=== PATIENT | female | born 1990 | race Caucasian/White ===

== ENCOUNTER → 2020-10-05 | Outpatient (CLI) | payer OTHER ==
--- NOTE | 2020-10-05 15:24 | REP ---
INDICATION: LLQ FLANK/ABD PAIN TENDERNESS NAUSEA ? OVARY CYST/LABS FIRST. COMPARISON: None. TECHNIQUE: Real-time sonographic evaluation of abdomen performed to evaluate for ascites. FINDINGS: There is no free fluid in the upper or lower abdomen bilaterally. IMPRESSION: No sonographic evidence of significant ascites. <Electronically signed by Christo Rose > 10/05/20 [id number]
--- NOTE | 2020-10-05 15:26 | REP ---
INDICATION: LLQ FLANK/ABD PAIN TENDERNESS NAUSEA? OVARY CYST/LABS FIRS. COMPARISON: None. TECHNIQUE: Transabdominal and transvaginal scanning performed. FINDINGS: Uterine dimensions are 6.5 x 3.3 x 3.6 cm. Endometrial echo is 10 mm in AP dimension and centrally placed. The endometrial echo complex is heterogeneous. The bladder measures 6.7 x 3.7 x 7.1cm. The right ovary has dimensions of 2.9 x 2.3 x 2.7 cm. It's Doppler flow is normal with a resistive index of 0.55. The left ovary dimensions are 2.1 x 1.8 x 1.9 cm. It's Doppler flow was normal with resistive index of 0.48. There is no adnexal mass identified. There is trace free fluid in the cul-de-sac which is likely physiologic. IMPRESSION: Negative pelvic ultrasound. If there is clinical concern for ectopic , correlate with serial quantitative beta HCG values. <Electronically signed by Christo Rose > 10/05/20 [id number]
[2020-10-05 15:37] LABS: BASO # 0.1 10^3/uL (0.0-0.2); EOS # 0.2 10^3/uL (0.0-0.5); EOS % 2.1 % (0.0-3.0); HEMATOCRIT 41.8 % (36.0-47.0); HEMOGLOBIN 13.8 g/dl (12.0-15.5); LYMPH # 2.3 10^3/uL (1.5-5.0); LYMPH % 28.4 % (24.0-44.0); MEAN CORPUSCULAR HEMOGLOBIN 29.2 pg (27.0-33.0); MEAN CORPUSCULAR VOLUME 88.6 fl (80.0-96.0); MONO # 0.7 10^3/uL (0.0-0.8); MONO % 8.4 % (2.0-8.0); NEUTROPHILS # 4.9 10^3/uL (1.5-8.5); NEUTROPHILS % 59.7 % (36.0-66.0); PLATELET COUNT, AUTOMATED 286 10^3/uL (150-450); RED BLOOD COUNT 4.72 10^6/uL (4.00-5.40); WHITE BLOOD COUNT 8.1 10^3/uL (4.0-10.0)
[2020-10-05 16:10] LABS: ALBUMIN 3.3 GM/DL (3.2-5.2); ALT/SGPT 28 U/L (12-78); BILIRUBIN,TOTAL 0.4 MG/DL (0.2-1.0); BLOOD UREA NITROGEN 11 MG/DL (7-18); CALCIUM LEVEL 8.5 MG/DL (8.5-10.1); CARBON DIOXIDE LEVEL 26 MEQ/L (21-32); CHLORIDE LEVEL 109 MEQ/L (98-107); CREATININE FOR GFR 0.66 MG/DL (0.55-1.30); GLOMERULAR FILTRATION RATE > 60.0 (>60); GLUCOSE, FASTING 92 MG/DL (70-100); HCG, SERUM QUANTITATIVE < 1.0 MIU/ML; LIPASE 74 U/L (73-393); POTASSIUM SERUM 4.1 MEQ/L (3.5-5.1); SODIUM LEVEL 140 MEQ/L (136-145); TOTAL PROTEIN 6.6 GM/DL (6.4-8.2)
== END ==
LOC: M RAD 13:48
PROVIDERS: ATTEND Physician Assistant
DX: R10.814 Left lower quadrant abdominal tenderness (principal); R11.0 Nausea

== ENCOUNTER 2021-06-15 10:42 | Day surgery (SDC) | payer OTHER ==
[~2021-06-15] VITALS: Ht 167.6 cm; Wt 111.0 kg
[~2021-06-15 10:42] MED LIST: LR 1,000 ML IV ONE; SYNT137T7 PO
[2021-06-15 11:15] LABS: HEMATOCRIT 40.4 % (36.0-47.0); HEMOGLOBIN 13.5 g/dl (12.0-15.5); MEAN CORPUSCULAR HEMOGLOBIN 29.8 pg (27.0-33.0); MEAN CORPUSCULAR HGB CONC 33.4 g/dl (32.0-36.5); MEAN CORPUSCULAR VOLUME 89.2 fl (80.0-96.0); PLATELET COUNT, AUTOMATED 305 10^3/uL (150-450); RED BLOOD COUNT 4.53 10^6/uL (4.00-5.40); WHITE BLOOD COUNT 9.2 10^3/uL (4.0-10.0)
[2021-06-15 11:58] LABS: BLOOD UREA NITROGEN 16 MG/DL (7-18); CALCIUM LEVEL 8.8 MG/DL (8.5-10.1); CARBON DIOXIDE LEVEL 26 MEQ/L (21-32); CHLORIDE LEVEL 108 MEQ/L (98-107); CREATININE FOR GFR 0.84 MG/DL (0.55-1.30); GLOMERULAR FILTRATION RATE > 60.0 (>60); GLUCOSE, FASTING 88 MG/DL (70-100); HCG, SERUM QUANTITATIVE < 1.0 MIU/ML; POTASSIUM SERUM 4.4 MEQ/L (3.5-5.1); SODIUM LEVEL 137 MEQ/L (136-145)
[2021-06-15] MEDS ORDERED: fentaNYL 100 MCG/2 ML INJECTION As Ordered ONE (12:21)
[2021-06-15] MEDS ORDERED: MIDAZOLAM INJ 2MG/2ML VIAL (J2250 PER 1MG) As Ordered ONE (12:21)
[2021-06-15] MEDS ORDERED: propofoL 200 MG/20 ML VIAL As Ordered ONE (12:22)
[2021-06-15] MEDS ORDERED: dexameTHASONE 4 MG/ML 1ML VIAL (J1100 PER 1MG) As Ordered ONE (12:22)
[2021-06-15] MEDS ORDERED: ONDANSETRON 4MG/2ML VIAL As Ordered ONE (12:22)
[2021-06-15] MEDS ORDERED: LIDOCAINE 2% 100MG/5ML SDV (FOR ANES.) As Ordered ONE (12:22)
[2021-06-15] MEDS ORDERED: ACETAMINOPHEN 650 MG SUPP As Ordered ONE (14:51)
[2021-06-15] MEDS ORDERED: ONDANSETRON 4MG/2ML VIAL IV PRN (16:35)
[2021-06-15] MEDS ORDERED: fentaNYL 100 MCG/2 ML INJECTION IV PRN (16:35)
[2021-06-15] MEDS ORDERED: LR 1,000 ML IV SCH (16:35)
[2021-06-15 17:51] VITALS: BP 140/66
== END 2021-06-15 18:00 | disposition home or self-care (01) ==
LOC: M SDC 10:42
PROVIDERS: ATTEND Obstetrics & Gynecology
DX: N93.9 Abnormal uterine and vaginal bleeding, unspecified (principal); N84.0 Polyp of corpus uteri; E03.9 Hypothyroidism, unspecified; E28.2 Polycystic ovarian syndrome; F12.90 Cannabis use, unspecified, uncomplicated; Z79.899 Other long term (current) drug therapy
CPT/HCPCS: 36415; 58563; 80048; 84702; 85027; G0123; J1100; J2250; J2405; J3010

== ENCOUNTER 2023-04-12 07:18 | Inpatient (IN) | payer OTHER ==
[~2023-04-12] VITALS: Ht 167.6 cm; Wt 128.6 kg
[2023-04-12] VITALS (11 sets, daily range): BP systolic 96–156; BP diastolic 57–87
[~2023-04-12 07:18] MED LIST changes: -LR 1,000 ML IV ONE
[2023-04-12] MEDS ORDERED: PRENTAB9 PO (07:52)
[2023-04-12] MEDS ORDERED: NOXI1TAB PO (07:56)
[2023-04-12] MEDS ORDERED: ASPI-226 PO (07:56)
[2023-04-12] MEDS ORDERED: VITA100093 PO (07:56)
[2023-04-12] MEDS ORDERED: HOME MED LIST COMPLETE! XX SCH (08:25)
[2023-04-12] MEDS: LACTATED RINGER'S 1000 ML IV STA (08:33)
[2023-04-12] MEDS ORDERED: METHYLERGONOVINE MALEATE 0.2MG/ML 1ML VIAL IM PRN (08:35)
[2023-04-12] MEDS ORDERED: OXYTOCIN DRIP 30 UNITS in IV 1 EA IV PRN (08:35)
[2023-04-12] MEDS ORDERED: CARBOPROST TROMETHAMINE 250 MCG/ML AMP IM PRN (08:35)
[2023-04-12] MEDS ORDERED: TRANEXAMIC ACID INJection 1,000 MG in NS 100 ML IV PRN (08:35)
[2023-04-12 09:00] LABS: MEAN CORPUSCULAR HEMOGLOBIN 29.8 pg (27.0-33.0); MEAN CORPUSCULAR HGB CONC 33.3 g/dl (32.0-36.5); MEAN CORPUSCULAR VOLUME 89.3 fl (80.0-96.0); PLATELET COUNT, AUTOMATED 178 10^3/uL (150-450); RED BLOOD COUNT 4.03 10^6/uL (4.00-5.40); WHITE BLOOD COUNT 9.5 10^3/uL (4.0-10.0)
[2023-04-12] MEDS: miSOPROStol 50MCG 1/2 TABLET BUC PRN (09:48)
[2023-04-12] MEDS: BUTORPHANOL 2 MG/ML 1ML VIAL IV ONE (22:06)
[2023-04-12] MEDS: PROMETHAZINE 25MG/ML 1ML VIAL IV ONE (22:06)
[2023-04-13] VITALS (61 sets, daily range): BP systolic 88–147; BP diastolic 52–114
[2023-04-13] MEDS: LR 1,000 ML IV SCH (00:35)
[2023-04-13] MEDS: OXYTOCIN DRIP 30 UNITS in IV 1 EA IV SCH ×2 (04:01→23:26)
[2023-04-13] MEDS ORDERED: ONDANSETRON 4MG 2ML VIAL IV PRN ×2 (04:40→23:20)
[2023-04-13] MEDS ORDERED: diphenhydrAMINE 50MG/ML VIAL IV PRN (04:40)
[2023-04-13] MEDS ORDERED: LR 500 ML IV PRN (04:40)
[2023-04-13] MEDS ORDERED: EPIDURAL/PCA KEYS XX PRN (04:40)
[2023-04-13] MEDS ORDERED: NALOXONE INJ 0.4MG/1ML VIAL IV PRN (04:40)
[2023-04-13] MEDS ORDERED: ePHEDrine SULFATE 25 MG/5 ML(5MG/ML) SYRINGE IVP PRN (04:40)
[2023-04-13] MEDS: FENTANYL/ROPIVACAINE/NACL BAG 100 ML EPIDURAL SCH (05:30)
[2023-04-13] MEDS: LEVOTHYROXINE 137MCG TABLET (0.137MG) PO SCH (07:34)
[2023-04-13] MEDS: ACETAMINOPHEN *IV* 1,000 MG in IV 1 EA IV ONE (20:07)
[2023-04-13 22:44] LABS: CORD GAS ABE A -7.5; CORD GAS HCO3 A 17.2 MMOL/L; CORD GAS O2 SAT A 76.5 %; CORD GAS PCO2 A 32.8 mmHg; CORD GAS PH A 7.337 UNITS; CORD GAS PO2 A 33.3 mmHg; CORD GAS SBC A 18.1 MMOL/L; CORD GAS TCO2 A 18.2 MMOL/L
[2023-04-13] MEDS: OXYTOCIN DRIP 30 UNITS in IV 1 EA IV PRN (22:45)
[2023-04-13] MEDS: LIDOCAINE 1% MDV 20ML VIAL INFIL PRN (22:52)
[2023-04-13] MEDS ORDERED: ACETAMINOPHEN 500 MG TAB PO PRN (23:20)
[2023-04-13] MEDS ORDERED: METHYLERGONOVINE MALEATE 0.2 MG TAB PO PRN (23:20)
[2023-04-13] MEDS ORDERED: DIBUCAINE 1% OINTMENT 30GM TOP PRN (23:20)
[2023-04-14 00:01] VITALS: BP 105/55
[2023-04-14 00:16] VITALS: BP 108/62
[2023-04-14 01:00] VITALS: BP 130/71
[2023-04-14] MEDS: IBUPROFEN 600MG TAB PO PRN (03:29)
[2023-04-14 06:00] VITALS: BP 121/58
[2023-04-14] MEDS: PRENATAL VITAMINS CHEWABLE TABLET PO SCH (07:45)
[2023-04-14] MEDS: ACETAMINOPHEN TAB 650MG DOSE (2X325MG) PO PRN (09:00)
[2023-04-14] MEDS: RHOGAM 300MCG (1500IU) INJ IM SCH (09:47)
[2023-04-14] MEDS: DOCUSATE SODIUM 100MG CAPSULE PO PRN (11:54)
[2023-04-14 18:00] VITALS: BP 137/86; O2SAT 100
[2023-04-14] MEDS: IBUPROFEN 800 MG TAB PO PRN (23:42)
[2023-04-15 06:00] VITALS: BP 112/69; O2SAT 98
[2023-04-15] MEDS ORDERED: ACET1TAB55 PO (09:35)
[2023-04-15] MEDS ORDERED: IBUP-1022 PO (09:35)
[2023-04-15] MEDS ORDERED: COLA100C5 PO (09:35)
== END 2023-04-15 17:30 | disposition home or self-care (01) | DRG 807 ==
LOC: M LDI 07:18 → M OBS 04-14 01:47
PROVIDERS: ADMIT Advanced Practice Midwife; ATTEND Advanced Practice Midwife
PROC: 0UQMXZZ Repair Vulva, External Approach (ICD-10-PCS; 2023-04-12)
PROC: 0HQ9XZZ Repair Perineum Skin, External Approach (ICD-10-PCS; 2023-04-12)
PROC: 3E0P7GC Introduction of Other Therapeutic Substance into Female Reproductive, Via Natural or Artificial Opening (ICD-10-PCS; 2023-04-12)
PROC: 10E0XZZ Delivery of Products of Conception, External Approach (ICD-10-PCS; principal; 2023-04-13)
DX: O48.0 Post-term pregnancy (principal); Z37.0 Single live birth; Z3A.40 40 weeks gestation of pregnancy; O99.284 Endocrine, nutritional and metabolic diseases complicating childbirth; E03.9 Hypothyroidism, unspecified; O99.344 Other mental disorders complicating childbirth; F41.9 Anxiety disorder, unspecified; O99.214 Obesity complicating childbirth; E66.9 Obesity, unspecified; Z79.890 Hormone replacement therapy; Z79.899 Other long term (current) drug therapy; Z79.82 Long term (current) use of aspirin; O70.0 First degree perineal laceration during delivery; O71.82 Other specified trauma to perineum and vulva